=== PATIENT | male | born 1980 | race African-American/Black ===

== ENCOUNTER 2024-11-18 08:01 | Inpatient (IN) | payer MEDICAID ==
[~2024-11-18] VITALS: Ht 165.1 cm; Wt 71.7 kg
[2024-11-18] MEDS ORDERED: NALOXONE HCL 0.4MG/ML 1ML VIAL IV PRN (08:15)
[2024-11-18] MEDS: LEVETIRACETAM 1000MG PREMIX 100 ML IV SCH (08:31)
[2024-11-18] MEDS: OLANZAPINE 10 MG/VIAL IM ONE (08:42)
[2024-11-18] MEDS: MIDAZOLAM HCL 2 MG/2 ML VIAL IM ONE (08:45)
[2024-11-18] MEDS ORDERED: MIDAZOLAM HCL 2 MG/2 ML VIAL IM ONE (08:45)
[2024-11-18 09:13] LABS: BASOPHILS % 0.8 % (0.0-2.0); EOSINOPHILS % 3.8 % (0.0-5.0); HEMATOCRIT. 39.6 % (42.0-52.0); HEMOGLOBIN. 12.7 g/dL (14.0-18.0); MEAN CORPUSCULAR HGB CONC 32.2 g/dL (31.0-37.0); MEAN CORPUSCULAR VOLUME 87.1 fL (80.0-94.0); MEAN PLATELET VOLUME 7.7 fl (7.4-10.4); MONOCYTES % 7.4 % (2.0-8.0); PLATELET 224 x1000/uL (130-400); RED BLOOD CELL COUNT 4.55 mill/uL (4.7-6.1); RED CELL DISTRIBUTION WIDTH 14.9 % (11.6-14.6); WHITE BLOOD COUNT 4.8 x1000/uL (4.5-11.0)
[2024-11-18 09:31] LABS: CHLORIDE 109 mEq/L (98-107); POTASSIUM 3.7 mEq/L (3.5-5.1); SODIUM 142 mEq/L (136-145)
[2024-11-18 09:32] LABS: CARBON DIOXIDE 23 mEq/L (21-32)
[2024-11-18 09:33] LABS: CALCIUM 8.5 mg/dL (8.7-10.4)
[2024-11-18 09:37] LABS: CREATININE 1.2 mg/dL (0.6-1.3)
[2024-11-18 09:38] LABS: ETHANOL BLOOD < 10 mg/dL (<10); GLUCOSE 97 mg/dL (70-105); TROPONIN I HIGH SENSITIVITY 10 ng/L (3.0-53); UREA NITROGEN BLOOD 13 mg/dL (9-23)
[2024-11-18 09:39] LABS: ACETAMINOPHEN < 2 ug/mL (10-30)
[2024-11-18 11:40] LABS: TROPONIN I HIGH SENSITIVITY 9 ng/L (3.0-53)
[2024-11-18 12:28] LABS: CLARITY URINE CLEAR (CLEAR); COLOR URINE YELLOW (YELLOW); GLUCOSE URINE NEGATIVE (NEGATIVE); KETONES URINE NEGATIVE (NEGATIVE); LEUKOCYTE ESTERASE URINE NEGATIVE (NEGATIVE); NITRITE URINE NEGATIVE (NEGATIVE); OCCULT BLOOD URINE NEGATIVE (NEGATIVE); PROTEIN URINE NEGATIVE (NEGATIVE); SPECIFIC GRAVITY URINE 1.018 (1.005-1.030)
[2024-11-18] MEDS ORDERED: IPRATROPIUM/ALBUTEROL 0.5-3(2.5)MG/3ML NEB HHN PRN (12:45)
[2024-11-18] MEDS ORDERED: ONDANSETRON HCL 4MG/2ML INJ IV PRN (12:45)
[2024-11-18] MEDS ORDERED: MAGNESIUM/ALUMINUM HYDROXIDE/SIMETHICONE 30ML UDC PO PRN (12:45)
[2024-11-18] MEDS ORDERED: GUAIFENESIN 200MG/10ML SUGAR FREE UDC PO PRN (12:45)
[2024-11-18] MEDS ORDERED: DOCUSATE SODIUM 100MG CAPSULE PO PRN (12:45)
[2024-11-18 12:58] LABS: *AMPHETAMINES SCREEN URINE PRESUMPTIVE POSITIVE (NEGATIVE); *BARBITURATES SCREEN URINE NEGATIVE (NEGATIVE); *BENZODIAZEPINES SCREEN URINE PRESUMPTIVE POSITIVE (NEGATIVE); *COCAINE SCREEN URINE NEGATIVE (NEGATIVE); CANNABINOID URINE SCREEN NEGATIVE (NEGATIVE); ECSTASY MDMA SCREEN URINE CONF.TEST INDICATED (NEGATIVE); METHADONE URINE SCREEN NEGATIVE (NEGATIVE); OPIATES URINE SCREEN NEGATIVE (NEGATIVE); PHENCYCLIDINE URINE SCREEN PRESUMTIVE POSITIVE (NEGATIVE)
[2024-11-18 15:00] VITALS: BP 147/73; PULSE 55; RESP 14; TEMP 37
[2024-11-18 16:00] VITALS: BP 131/83; PULSE 55; RESP 15; TEMP 36.2; O2SAT 97
[2024-11-18] MEDS ORDERED: LORAZEPAM 2MG/ML UD SYRINGE IV PRN (19:15)
[2024-11-18] MEDS ORDERED: DEXTROSE 50% WATER 50ML SYRINGE IV ONE (19:19)
[2024-11-18 20:00] VITALS: BP 154/85; PULSE 63; RESP 18; TEMP 36.3; O2SAT 97
[2024-11-18] MEDS ORDERED: LEVETIRACETAM 500MG in NACL 100ML PREMIX IV SCH (21:00)
[2024-11-18] MEDS: LEVETIRACETAM 500MG PREMIX 100 ML IV SCH (21:00)
[2024-11-18] MEDS: DEXTROSE 5% WATER 1,000 ML IV ONE (21:10)
[2024-11-19] VITALS: BP 140/93; PULSE 59; RESP 18; TEMP 37.1; O2SAT 97
[2024-11-19 04:00] VITALS: BP 136/95; PULSE 63; RESP 18; TEMP 37; O2SAT 94
[2024-11-19 06:10] LABS: EOSINOPHILS % 4.8 % (0.0-5.0); HEMATOCRIT. 42.8 % (42.0-52.0); HEMOGLOBIN. 13.8 g/dL (14.0-18.0); LYMPHOCYTES % 41.8 % (20.0-50.0); MEAN CORPUSCULAR HEMOGLOBIN 28.1 pg (28.0-32.0); MEAN CORPUSCULAR HGB CONC 32.3 g/dL (31.0-37.0); MEAN CORPUSCULAR VOLUME 87.2 fL (80.0-94.0); MONOCYTES % 9.6 % (2.0-8.0); NEUTROPHILS % 42.8 % (40.0-76.0); PLATELET 242 x1000/uL (130-400); RED BLOOD CELL COUNT 4.91 mill/uL (4.7-6.1); WHITE BLOOD COUNT 3.2 x1000/uL (4.5-11.0)
[2024-11-19 06:25] LABS: CHLORIDE 105 mEq/L (98-107); POTASSIUM 4.7 mEq/L (3.5-5.1); SODIUM 138 mEq/L (136-145)
[2024-11-19 06:26] LABS: CALCIUM 8.4 mg/dL (8.7-10.4); CARBON DIOXIDE 25 mEq/L (21-32)
[2024-11-19 06:31] LABS: CREATININE 1.2 mg/dL (0.6-1.3); GLUCOSE 139 mg/dL (70-105); UREA NITROGEN BLOOD 11 mg/dL (9-23)
[2024-11-19 08:00] VITALS: BP 141/89; PULSE 59; RESP 18; TEMP 36.9; O2SAT 98
[2024-11-19 12:00] VITALS: BP 136/80; PULSE 60; RESP 17; TEMP 36.6; O2SAT 99
[2024-11-19] MEDS: ENOXAPARIN 40MG/0.4ML SYR SUBCUT SCH (13:16)
[2024-11-19 16:00] VITALS: BP 141/81; PULSE 56; RESP 18; TEMP 36.6; O2SAT 100
[2024-11-19] MEDS ORDERED: LORAZEPAM 2MG/ML UD SYRINGE IV PRN (16:00)
[2024-11-19 20:00] VITALS: BP 155/99; PULSE 83; RESP 18; TEMP 36.3; O2SAT 99
[2024-11-20] VITALS: BP 122/76; PULSE 64; RESP 16; TEMP 37; O2SAT 98
[2024-11-20 04:00] VITALS: BP_SYST 130; BP_SYST 145; BP_DIAS 70; BP_DIAS 95; PULSE 62; RESP 18; TEMP 36.4; O2SAT 99
[2024-11-20 08:00] VITALS: BP 151/85; PULSE 67; RESP 17; TEMP 36.3; O2SAT 98
[2024-11-20 12:00] VITALS: BP 119/62; PULSE 61; RESP 18; TEMP 36.8; O2SAT 98
[2024-11-20] MEDS ORDERED: KEPP500 MT (12:24)
[2024-11-20 16:00] VITALS: BP 150/82; PULSE 73; RESP 17; TEMP 36.6; O2SAT 98
[2024-11-20 20:00] VITALS: BP 137/89; PULSE 55; RESP 18; TEMP 36.9; O2SAT 97
[2024-11-21] VITALS: BP 138/84; PULSE 67; RESP 18; TEMP 36.9; O2SAT 95
[2024-11-21 04:00] VITALS: BP 166/101; PULSE 85; RESP 18; TEMP 36.7; O2SAT 99
[2024-11-21] MEDS: CLONIDINE 0.1MG TABLET PO PRN (04:50)
[2024-11-21 08:00] VITALS: BP 126/78; PULSE 61; RESP 18; TEMP 36.8; O2SAT 96
[2024-11-21 10:09] VITALS: BP 125/84; PULSE 75; TEMP 97.5; O2SAT 96
== END 2024-11-21 12:00 | disposition home or self-care (01) | DRG 53 ==
LOC: ER 08:01 → 5WST 12:33 → EDBEDREQTM 12:37 → EDBEDREQ 12:37 → ENRESERV 12:40 → 5WST 14:20
PROVIDERS: ADMIT Hospitalist; ATTEND Hospitalist
DX: G40.909 Epilepsy, unspecified, not intractable, without status epilepticus (principal); D64.9 Anemia, unspecified; R03.0 Elevated blood-pressure reading, without diagnosis of hypertension; F19.10 Other psychoactive substance abuse, uncomplicated; Z91.148 Patient's other noncompliance with medication regimen for other reason; Z59.01 Sheltered homelessness; Z88.5 Allergy status to narcotic agent
CPT/HCPCS: 36415; 71045; 80048; 80305; 80307; 80320; 80329; 81003; 82962; 84484; 85025; 93005; 97161; 97166; 99291; A4606; J1650; J1953; J2250; J3490; G0480